=== PATIENT | male | born 1965 | race Caucasian/White ===

== ENCOUNTER 2019-04-11 12:51 | Emergency (ER) | payer MEDICARE, MEDICAID ==
--- NOTE | 2019-04-11 13:40 | CR ---
[id number] RAD/RAD Foot Right 2V EXAM: RIGHT FOOT 2 VIEWS INDICATION: Trauma. COMPARISON: None. DISCUSSION: Possible nondisplaced third metatarsal base fracture. Partial amputation of the second toe. Irregularity of the first interphalangeal joint with well-corticated margin which may relate to prior trauma or infection. No acute fracture or dislocation. IMPRESSION: 1. Possible nondisplaced third metatarsal base fracture, correlate with site of trauma and pain. Ahmet Blakely MD 04/11/19 [id number] Thank you for allowing us to participate in the care of your patient.
--- NOTE | 2019-04-11 13:51 | EDM.PDOC ---
ED HPI GENERAL MEDICAL PROBLEM - General Chief Complaint: Lower Extremity Injury/Pain Stated Complaint: FOOT Time Seen by Provider: 04/11/19 13:02 Source of Information: Reports: Patient History Limitations: Reports: No Limitations - History of Present Illness INITIAL COMMENTS - FREE TEXT/NARRATIVE: Injured right foot several days ago Pain in mid-foot Pt injured it 9 weeks ago as well Increased pain over past several days Onset: Gradual Duration: Day(s):, Getting Worse Location: Reports: Lower Extremity, Right Quality: Reports: Throbbing Severity: Moderate Improves with: Reports: Immobilization Worsens with: Reports: Movement Associated Symptoms: Reports: Other (Swelling of foot) - Related Data Allergies Allergy/AdvReac Type Severity Reaction Status Date / Time No Known Drug Allergies Allergy Other Verified 04/11/19 13:09 steroid AdvReac Irritabilit Uncoded 04/11/19 13:09 y Home Meds: Home Meds ALPRAZolam [Alprazolam] 1 mg PO QID 06/12/14 [History] ARIPiprazole [Abilify] 30 mg PO DAILY 06/12/14 [History] Albuterol [Proair HFA] 2 puff INH Q4HR PRN 06/12/14 [History] Aspirin 325 mg PO DAILY 06/12/14 [History] Cyclobenzaprine [Flexeril] 10 mg PO TID 06/12/14 [History] DULoxetine [Cymbalta] 60 mg PO BID 06/12/14 [History] Hydrochlorothiazide 25 mg PO DAILY 06/12/14 [History] Loratadine [Claritin] 10 mg PO DAILY 06/12/14 [History] Magnesium Citrate [Citroma] 296 ml PO ONETIME #1 solution 06/12/14 [Rx] Metoprolol Tartrate [Lopressor] 100 mg PO BID 06/12/14 [History] traZODone 200 mg PO BEDTIME 06/12/14 [History] Review of Systems - Review of Systems Review Of Systems: See Below Musculoskeletal: Reports: Foot Pain ED EXAM, GENERAL - Physical Exam Exam: See Below Extremities: Other (Right grader tender in mid-foot Mild swelling No deformity No ecchymosis) Course - Radiology Interpretation Free Text/Narrative:: Possible fracture 3rd metatarsal base - Re-Assessments/Exams Free Text/Narrative Re-Assessment/Exam: 04/11/19 13:49 Pt placed in splint shoe Departure - Departure Time of Disposition: 14:00 Disposition: Home, Self-Care 01 Clinical Impression: Closed fracture of foot - Discharge Information *PRESCRIPTION DRUG MONITORING PROGRAM REVIEWED*: Not Applicable *COPY OF PRESCRIPTION DRUG MONITORING REPORT IN PATIENT NATALIE: Not Applicable Instructions: Walking Boot, Adult, Cast or Splint Care, Adult Referrals: Florentino Brice MD [Primary Care Provider] - Additional Instructions: Ice as needed Elevate Tylenol or Motrin as needed Follow up in clinic
== END 2019-04-11 14:00 | disposition home or self-care (01) ==
LOC: VM.ED 12:51
DX: S92.331A Displaced fracture of third metatarsal bone, right foot, initial encounter for closed fracture (principal); Z79.82 Long term (current) use of aspirin; Z79.899 Other long term (current) drug therapy; Z88.5 Allergy status to narcotic agent; X58.XXXA Exposure to other specified factors, initial encounter
CPT/HCPCS: 73620-RT; 99283-25